=== PATIENT | female | born 1995 | race Two or more races ===

== ENCOUNTER → 2019-06-10 | Outpatient (CLI) | payer OTHER ==
[~2019-06-10] MED LIST: CONTRAST GIVEN. MC PRN; GADOTERATE 7.5 MMOL/15ML VIAL. INT ART ONE; IOHEXOL 300 MG/ML 50 ML VIAL. INT ART ONE; LIDOCAINE 1% Multi-Dose 20 ML VIAL. ID ONE
--- NOTE | 2019-06-10 16:28 | KCIC ---
MRI arthrogram of the left hip HISTORY: Left hip pain. Injury in March. Worsening for 4 to 5 weeks. TECHNIQUE: Routine 4 plane sequences are obtained after intra-articular contrast injection. FINDINGS: No evidence of acute fracture. No aggressive bone destruction. No evidence of femoral head osteonecrosis. Linear thin full-thickness defect across the anterior labrum, best seen on a single slice, series 8, image 9, suspicious for a very small tear. Superior and posterior labrum appear intact. Articular cartilage is intact. No para labral cyst. Gluteus minimus and medius tendons are intact. Hamstring tendon intact intact. Iliopsoas tendon intact. Rectus femoris tendon attachment intact. Large [id number] coronal STIR survey sequence demonstrates no acute findings at the contralateral hip or elsewhere in the [id number]. IMPRESSION: 1. Very small single slice full-thickness defect across the anterior labrum suspicious for small tear. 2. No other significant abnormality Electronically signed by: Dmitriy Rush MD (06/10/2019 4:25 PM) [id number]
--- NOTE | 2019-06-10 16:29 | KCIC ---
Left hip injection using fluoroscopic guidance, prior to MR. HISTORY: Hip pain. Failed TECHNIQUE: The procedure was explained to the patient as were potential risks, including among others infection, bleeding or allergic reaction. All questions were answered. Informed written and verbal consent was obtained. The hip region was prepped and draped in the usual sterile manner. Following administration of local anesthetic, a 22-gauge needle was advanced into the anterior hip. Following negative aspiration, 12 cc of a solution of 5cc Omnipaque-300 contrast, 5 cc 1% lidocaine, 10 cc normal saline, and 0.1 cc gadolinium was injected without difficulty. The needle was removed. There was good hemostasis at the injection site. The patient left in stable condition without immediate complication. A single spot image is obtained. FLUOROSCOPY TIME:?26 seconds Electronically signed by: Dmitriy Rush MD (06/10/2019 4:26 PM) [id number]
== END | disposition home or self-care (01) ==
LOC: KCIC 14:15
PROVIDERS: ATTEND Orthopaedic Surgery
DX: M25.552 Pain in left hip (principal); J45.909 Unspecified asthma, uncomplicated; Z88.5 Allergy status to narcotic agent
CPT/HCPCS: 73525; 73722; A9575; Q9967